=== PATIENT | female | born 1990 | race Caucasian/White ===

== ENCOUNTER 2017-11-11 18:00 | Emergency (ER) | payer OTHER ==
[2017-11-11] MEDS ORDERED: Acetaminophen TAB* 325 MG PO ONE (18:52)
[2017-11-11] MEDS ORDERED: Acetaminophen TAB* 325 MG ONE (18:54)
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
[2017-11-11 19:21] LABS: ABS Basophils 0 10^3/ul (0-0.2); ABS Eosinophils 0 10^3/ul (0-0.6); ABS Lymphocytes 1.4 10^3/ul (1.0-4.8); ABS Monocytes 0.5 10^3/ul (0-0.8); ABS Neutrophils 8.8 10^3/ul (1.5-7.7); ABS Nucleated RBC 0 10^3/ul; Eosinophil % 0.3 % (0-6); Hematocrit 40 % (35-47); Hemoglobin 14.1 g/dl (12.0-16.0); Lymphocyte % 12.6 % (25-47); Mean Corpuscular HGB Conc 35 g/dl (31-36); Mean Corpuscular Hemoglobin 31 pg (27-31); Mean Corpuscular Volume 88 fL (80-97); Mean Platelet Volume 7.9 um3 (7.4-10.4); Nucleated Red Blood Cells % 0.1; Platelet Count 260 10^3/ul (150-450); Red Blood Count 4.58 10^6/ul (4.00-5.40); Red Cell Distribution Width 12 % (10.5-15); White Blood Count 10.7 10^3/ul (3.5-10.8)
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
[2017-11-11 19:43] LABS: EGFR Non-African American 87.4 (>60)
[2017-11-11] MEDS ORDERED: Iohexol 300* (CONTRAST) 10 ML SDV IV ONE (19:48)
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
[2017-11-11] MEDS ORDERED: Cyclobenzaprine TAB* 10 MG PO ONE (22:08)
[2017-11-11] MEDS ORDERED: Ibuprofen TAB* 600 MG PO ONE (22:08)
[2017-11-11] MEDS ORDERED: Ibuprofen TAB* 800 MG PO ONE ×2 (22:15→22:17)
[2017-11-11] MEDS ORDERED: Ibuprofen TAB* 400 MG PO ONE (22:16)
[2017-11-11 22:26] VITALS: BP 110/67
== END 2017-11-11 22:24 | disposition home or self-care (01) ==
LOC: ED 18:00
DX: M54.2 Cervicalgia (principal); M54.5 Low back pain; M25.561 Pain in right knee; M25.511 Pain in right shoulder; R10.32 Left lower quadrant pain; R10.31 Right lower quadrant pain; R07.89 Other chest pain; R51 Headache; R11.0 Nausea; J45.909 Unspecified asthma, uncomplicated; F32.9 Major depressive disorder, single episode, unspecified; Z88.8 Allergy status to other drugs, medicaments and biological substances; Z83.3 Family history of diabetes mellitus; Z83.49 Family history of other endocrine, nutritional and metabolic diseases; Z87.891 Personal history of nicotine dependence
CPT/HCPCS: 36415; 71260; 72125; 74177; 80053; 84702; 85025; 99283; A9270-GY; Q9967

== ENCOUNTER → 2019-01-17 06:54 | Day surgery (SDC) | payer BC ==
[~2019-01-17 06:54] MED LIST: Buffered Lidocaine 1% SYRIN* 1 ML/SYRINGE INTRADERM ONE; Bupivacaine 0.25% EPI 200,000* 30 ML SDV ONE; Dexamethasone IV* 4 MG/ML 1 ML (4 MG) IV SLOW PU ONE; Dexamethasone IV* 4 MG/ML 1 ML (4 MG) ONE; DiMENhydriNATE IV* 50 MG/ML VIAL IV PUSH PRN; Famotidine IV* 10 MG/ML 2 ML (20 mg) IV ONE; Famotidine IV* 10 MG/ML 2 ML (20 mg) ONE; HYDROcodone/ACETAMIN 5-325 MG* 1 TAB PO PRN; Ketorolac INJ* 30 MG/ML 1 ML VIAL ONE; Lactated Ringers 1000 ML Bag* 1,000 ML IV SCH; Lidocaine 2% PF * 5 ML VIAL ONE; Methylene Blue 0.5 %* 50 MG/10 ML AMP IV ONE; Midazolam* 1 MG/ML 5 ML VIAL (5 MG) ONE; Naloxone* 0.4 MG/ML 1 ML VIAL IV PRN; Ondansetron INJ* 2 MG/ML VIAL ONE; Ondansetron ODT TAB* 4 MG ONE; Phenylephrine 40 MCG/ML SYRINGE ONE; Propofol* 10 MG/ML 20 ML BTL ONE; Rocuronium* 10 MG/ML VIAL ONE; Scopolamine 1.5 mg* PATCH TRANSDERM PRN; Scopolamine PATCH Remove* 1 NOTE MISC PATCH OFF ONE; Sugammadex * 200 MG/2 ML VIAL IV PUSH ONE; fentaNYL* 50 MCG/ML 2 ML VIAL (100 MCG VIAL) IV PRN; fentaNYL* 50 MCG/ML 2 ML VIAL (100 MCG VIAL) ONE; fentaNYL* 50 MCG/ML 5 ML VIAL (250 MCG VIAL) ONE; oxyCODONE/Acetamin 5/325 MG* TAB ONE; oxyCODONE/Acetamin 5/325 MG* TAB PO PRN
[2019-01-17 11:33] VITALS: BP 131/85
--- NOTE | 2019-01-17 12:15 | OP ---
ATE OF OPERATION: 01/17/19 - [facility] DATE OF : 89 SURGEON: Sal Smith MD FOUNDATION COORDINATOR: Dr. Arzola. ANESTHESIA: General endotracheal tube. PRE-OP DIAGNOSES: Left ovarian cyst, pelvic pain. POST-OP DIAGNOSES: Left paratubal cyst and left adnexal torsion. OPERATIVE PROCEDURE: Detorsion of left adnexa, excision of paratubal cyst, and chromotubation and biopsy of peritoneum. ESTIMATED BLOOD LOSS: Minimal. SPECIMENS: Include left paratubal cyst and peritoneal biopsy. FINDINGS: On exam under anesthesia, the cervix, vagina, and vulva appeared normal. On laparoscopy, the anterior bladder flap was normal. The cul-de-sac contained some inflammation. The right tube and ovary appeared normal and had good spill from the right tube. The left tube and ovary were wound up within an adnexal torsion and there was approximately 3 cm left paratubal cyst. The left ovary appeared normal and was not necrotic. There was some inflammation in the cul-de-sac and some inflammatory process in the posterior uterus where it was alongside the torsed adnexa. DESCRIPTION OF PROCEDURE: The patient was identified and the procedure identified as a laparoscopy and possible excision of endometriosis. The patient was taken to the operating room, prepped and draped in the usual fashion in the dorsal lithotomy position under general anesthesia. Urinary catheter, the Glaser catheter was placed and a ClearView manipulator was placed in the cervical os. A small infraumbilical incision was made and a Veress needle was inserted through this. The abdomen was then insufflated to 15 mmHg. The Veress needle was removed and the trocar was inserted. The trocar was removed from the sheath and a laparoscope was inserted and the above findings were noted. One trocar was placed on the right abdominal side wall 8 cm lateral to the umbilicus under direct visualization and the same procedure was carried out on the left under direct visualization. Using the LigaSure with the unipolar hook, an incision was made, and first, the tube and ovary were detorsed. The left paratubal cyst was then incised on its serosal surface, and with the cyst undeflated, it was dissected off the mesosalpinx until it was just beneath the fallopian tube where the blood vessels were noted. These were cauterized using bipolar cautery and the then the paratubal cyst was excised from the fallopian tube. Once free, it was grasped with a tooth grasper. A small window was made and clear fluid was obtained. The paratubal cyst was then brought up through one of the 5 mm ports. Good hemostasis was verified. Copious irrigation was utilized and suctioned out. The inflammatory tissue was biopsied in case it turned out to be endometriosis, though it was suspected just to be inflammation. Copious irrigation was utilized and suctioned out. The tube was placed back in an anatomic position. Good hemostasis was verified. All instruments were removed from the abdomen. The abdomen was deflated of CO2. Incisions were closed using skin glue and the ClearView manipulator was removed from the vagina and the Glaser catheter was removed. All sponge and instrument counts were correct, and the patient returned to recovery room in stable condition. [id number] #: [id number] MTDD
== END | disposition home or self-care (01) ==
LOC: OR 06:54
PROVIDERS: ATTEND Obstetrics & Gynecology
DX: N83.8 Other noninflammatory disorders of ovary, fallopian tube and broad ligament (principal); N83.53 Torsion of ovary, ovarian pedicle and fallopian tube; J45.909 Unspecified asthma, uncomplicated; F41.8 Other specified anxiety disorders; Z72.0 Tobacco use; Z68.42 Body mass index [BMI] 45.0-49.9, adult
CPT/HCPCS: 81025; 88304; 88305; A9270-GY; J1100; J1885; J2250; J2405; J2704; J3010

== ENCOUNTER 2020-02-19 11:49 | Inpatient (IN) ==
[2020-02-19] MEDS ORDERED: Buffered Lidocaine 1% SYRIN 1 ml INTRADERM ONE (12:39)
[2020-02-19] MEDS ORDERED: Lactated Ringers 1000 ml BAG 1,000 ML IV ONE ×2 (12:39→20:28)
[2020-02-19] MEDS ORDERED: Oxytocin in LR 20 UNITS/1,000 ML BAG IVPB SCH ×2 (13:00→23:00)
[2020-02-19] MEDS ORDERED: Lactated Ringers 1000 ml BAG 1,000 ML IV SCH ×2 (13:00→21:00)
[2020-02-19 13:24] LABS: ABS Lymphocytes 1.5 10^3/ul (1.0-4.8); ABS Monocytes 0.6 10^3/ul (0-0.8); ABS Neutrophils 6.7 10^3/ul (1.5-7.7); Eosinophil % 0.2 %; Hematocrit 36 % (35-47); Hemoglobin 12.6 g/dL (12.0-16.0); Lymphocyte % 16.4 %; Mean Corpuscular HGB Conc 35 g/dL (31-36); Mean Corpuscular Hemoglobin 30 pg (27-31); Mean Corpuscular Volume 86 fL (80-97); Mean Platelet Volume 8.4 fL (7.4-10.4); Platelet Count 246 10^3/uL (150-450); Red Blood Count 4.24 10^6 /uL (3.70-4.87); Red Cell Distribution Width 14 % (10-15); White Blood Count 8.9 10^3/uL (3.5-10.8)
[2020-02-19 13:53] LABS: Urine Benzodiazepine Screen None Detected (None Detect); Urine Cannabinoids Screen None Detected (None Detect); Urine Opiates Screen None Detected (None Detect)
[2020-02-19] MEDS ORDERED: OBEPIDURAL 250 ML EPIDURAL ONE (19:26)
[2020-02-19] MEDS ORDERED: Bupivacaine 0.25% SDV PF 10 ML VIAL INJ ONE (19:42)
[2020-02-19] MEDS ORDERED: Lactated Ringers 1000 ml BAG 500 ML IV PRN ×2 (20:28)
[2020-02-19] MEDS ORDERED: EPHEDrine (Pressors) 50 MG/ML VIAL IV PUSH PRN ×2 (20:28)
[2020-02-19] MEDS ORDERED: Sodium Citrate/Citric Acid LIQ 15 ML UDC PO PRN (20:28)
[2020-02-19] MEDS ORDERED: Phenylephrine 40 mcg/mL 10mL (400mcg) SYRINGE IV PUSH PRN ×2 (20:28)
[2020-02-19] MEDS ORDERED: OBEPIDURAL 250 ML EPIDURAL SCH (21:00)
[2020-02-19] MEDS ORDERED: Witch Hazel PAD JAR TOPICAL PRN (22:41)
[2020-02-19] MEDS ORDERED: Dibucaine 1% OINT 28.35 GM TUBE PR PRN (22:41)
[2020-02-19] MEDS ORDERED: Glycerin ADULT 2.4 gm SUPP PR PRN (22:41)
[2020-02-19] MEDS ORDERED: Varicella Virus Vaccine Live 0.5 ML VIAL SUBCUT ONE (22:41)
[2020-02-20 06:19] LABS: ABS Lymphocytes 1.7 10^3/ul (1.0-4.8); ABS Monocytes 0.7 10^3/ul (0-0.8); Eosinophil % 0.3 %; Hematocrit 32 % (35-47); Hemoglobin 11.1 g/dL (12.0-16.0); Lymphocyte % 19.7 %; Mean Corpuscular HGB Conc 35 g/dL (31-36); Mean Corpuscular Hemoglobin 29 pg (27-31); Mean Corpuscular Volume 84 fL (80-97); Mean Platelet Volume 8.1 fL (7.4-10.4); Platelet Count 194 10^3/uL (150-450); Red Blood Count 3.81 10^6 /uL (3.70-4.87); Red Cell Distribution Width 14 % (10-15); White Blood Count 8.5 10^3/uL (3.5-10.8)
[2020-02-21 09:38] VITALS: BP 111/60
== END 2020-02-21 12:45 | disposition home or self-care (01) | DRG 560 ==
LOC: MCHOBOUT 11:49 → MCHOB 12:40
PROVIDERS: ADMIT Obstetrics & Gynecology; ATTEND Obstetrics & Gynecology

== ENCOUNTER 2022-03-16 09:30 | Inpatient (IN) ==
[~2022-03-16 09:30] MED LIST changes: +Buffered Lidocaine 1% SYRIN 1 ml INTRADERM ONE; -Buffered Lidocaine 1% SYRIN* 1 ML/SYRINGE INTRADERM ONE; -Bupivacaine 0.25% EPI 200,000* 30 ML SDV ONE; -Dexamethasone IV* 4 MG/ML 1 ML (4 MG) IV SLOW PU ONE; -Dexamethasone IV* 4 MG/ML 1 ML (4 MG) ONE; -DiMENhydriNATE IV* 50 MG/ML VIAL IV PUSH PRN; -Famotidine IV* 10 MG/ML 2 ML (20 mg) IV ONE; -Famotidine IV* 10 MG/ML 2 ML (20 mg) ONE; -HYDROcodone/ACETAMIN 5-325 MG* 1 TAB PO PRN; -Ketorolac INJ* 30 MG/ML 1 ML VIAL ONE; -Lactated Ringers 1000 ML Bag* 1,000 ML IV SCH; +Lactated Ringers 1000 ml BAG 1,000 ML IV SCH; -Lidocaine 2% PF * 5 ML VIAL ONE; -Methylene Blue 0.5 %* 50 MG/10 ML AMP IV ONE; -Midazolam* 1 MG/ML 5 ML VIAL (5 MG) ONE; -Naloxone* 0.4 MG/ML 1 ML VIAL IV PRN; -Ondansetron INJ* 2 MG/ML VIAL ONE; -Ondansetron ODT TAB* 4 MG ONE; -Phenylephrine 40 MCG/ML SYRINGE ONE; -Propofol* 10 MG/ML 20 ML BTL ONE; -Rocuronium* 10 MG/ML VIAL ONE; -Scopolamine 1.5 mg* PATCH TRANSDERM PRN; -Scopolamine PATCH Remove* 1 NOTE MISC PATCH OFF ONE; -Sugammadex * 200 MG/2 ML VIAL IV PUSH ONE; -fentaNYL* 50 MCG/ML 2 ML VIAL (100 MCG VIAL) IV PRN; -fentaNYL* 50 MCG/ML 2 ML VIAL (100 MCG VIAL) ONE; -fentaNYL* 50 MCG/ML 5 ML VIAL (250 MCG VIAL) ONE; -oxyCODONE/Acetamin 5/325 MG* TAB ONE; -oxyCODONE/Acetamin 5/325 MG* TAB PO PRN
[2022-03-16] MEDS ORDERED: Scopolamine 1 mg/72hr PATCH ONE (12:51)
[2022-03-16] MEDS ORDERED: Heparin 5000 UNITS/ML 1 mL VIAL ONE (12:51)
[2022-03-16] MEDS ORDERED: ceFAZolin 2 GM PREMIX 2 GM/50 ML BAG ONE (12:52)
[2022-03-16] MEDS ORDERED: ceFAZolin 1 GM in Dextrose 1 GM/50 ML BAG ONE (12:52)
[2022-03-16] MEDS ORDERED: Methylene Blue 0.5 % 50 MG/10 ML AMP IV ONE (13:19)
[2022-03-16] MEDS ORDERED: Bupivacaine 0.25% w/EPI 10 ML SDV ONE (13:19)
[2022-03-16] MEDS ORDERED: Dexamethasone IV 4 MG/ML VIAL 1 ml VIAL ONE (13:34)
[2022-03-16] MEDS ORDERED: Propofol 10 MG/ML 20 ML BTL ONE (13:34)
[2022-03-16] MEDS ORDERED: Ondansetron 4 mg VIAL 2 MG/ML 2 ml VIAL ONE ×2 (13:34→15:56)
[2022-03-16] MEDS ORDERED: fentaNYL 100 mcg/2 ml 50 MCG/ML VIAL ONE ×4 (13:34→16:46)
[2022-03-16] MEDS ORDERED: Lidocaine 2% PF 5 ML VIAL ONE (13:34)
[2022-03-16] MEDS ORDERED: Rocuronium 50 mg VIAL 10 mg/ml 5 ml VIAL (50 mg) ONE (13:35)
[2022-03-16] MEDS ORDERED: Phenylephrine 40 mcg/mL 10mL (400mcg) SYRINGE ONE (14:20)
[2022-03-16] MEDS ORDERED: HYDROmorphone 0.5 MG/0.5 ML SYRINGE ONE (14:51)
[2022-03-16] MEDS ORDERED: Metoprolol Tartrate 5 mg VIAL 5 ml VIAL (1 mg/ml) ONE (15:03)
[2022-03-16] MEDS ORDERED: Naloxone 0.4 mg VIAL 0.4 mg/ml 1 ml VIAL IV PRN (15:40)
[2022-03-16] MEDS ORDERED: Ondansetron 4 mg VIAL 2 MG/ML 2 ml VIAL IV PRN (15:40)
[2022-03-16] MEDS ORDERED: HYDROmorphone 1 MG/1 ML SYRINGE ONE (15:46)
[2022-03-16] MEDS: fentaNYL 100 mcg/2 ml 50 MCG/ML VIAL IV PRN ×4 (15:51→17:11)
[2022-03-16] MEDS ORDERED: HYDROmorphone 0.5 MG/0.5 ML SYRINGE IV SLOW PU PRN (16:50)
[2022-03-16] MEDS ORDERED: fentaNYL 100 mcg/2 ml 50 MCG/ML VIAL IV PRN (16:50)
[2022-03-16] MEDS: Lactated Ringers 1000 ml BAG 1,000 ML IV SCH (18:49)
[2022-03-16] MEDS: Ondansetron 4 mg VIAL 2 MG/ML 2 ml VIAL IV PRN (19:29)
[2022-03-16] MEDS: HYDROmorphone 0.5 MG/0.5 ML SYRINGE IV SLOW PU PRN (20:18)
[2022-03-16] MEDS: Heparin 5000 UNITS/ML 1 mL VIAL SUBCUT SCH (21:49)
[2022-03-16] MEDS ORDERED: Heparin 5000 UNITS/ML 1 mL VIAL SUBCUT SCH (22:00)
[2022-03-17] MEDS: HYDROmorphone 0.5 MG/0.5 ML SYRINGE IV SLOW PU PRN ×2 (00:38→05:45)
[2022-03-17] MEDS: Lactated Ringers 1000 ml BAG 1,000 ML IV SCH ×2 (03:09→09:41)
[2022-03-17] MEDS: Heparin 5000 UNITS/ML 1 mL VIAL SUBCUT SCH ×2 (05:45→14:24)
[2022-03-17] MEDS: Ondansetron 4 mg VIAL 2 MG/ML 2 ml VIAL IV PRN (05:45)
[2022-03-17] MEDS ORDERED: Prochlorperazine 5 mg/ml 2 ml VIAL (10 mg) IV PRN (09:13)
[2022-03-17] MEDS: HYDROcodone/ACET. 7.5/325 LIQ 15 ML UDC PO PRN ×2 (09:30→15:31)
[2022-03-17] MEDS: Prochlorperazine 5 mg/ml 2 ml VIAL (10 mg) ONE ×2 (09:44→09:48)
[2022-03-17 13:17] VITALS: BP 101/68
[2022-03-17] MEDS ORDERED: D5W 1/2 NS KCl 20 meq 1000 ml 1,000 ML IV SCH (16:00)
== END 2022-03-17 15:49 | disposition home or self-care (01) | DRG 621 ==
LOC: AA 12:35 → SSU 18:24
PROVIDERS: ADMIT Surgery; ATTEND Surgery